=== PATIENT | female | born 1995 | race African-American/Black ===

== ENCOUNTER 2016-11-03 23:54 | Emergency (ER) | payer MEDICAID, OTHER ==
[~2016-11-03] VITALS: Ht 165.1 cm; Wt 145.0 kg
[~2016-11-03 23:54] MED LIST: AUGM875T PO
[2016-11-03 23:56] VITALS: BP 169/97; PULSE 84; RESP 16; TEMP 98.4; O2SAT 97
[2016-11-04] MEDS ORDERED: LIDOCAINE VISCOUS 2% SOLN 15 ML UDC PO ONE (00:30)
[2016-11-04] MEDS ORDERED: SODIUM CHLORIDE 0.9% FLUSH 10 ML FLUSH IVF PRN (00:30)
[2016-11-04] MEDS ORDERED: ALUMINUM/MAGNESIUM/SIMETH 30 ML CUP PO ONE (00:30)
--- NOTE | 2016-11-04 00:32 | PD ---
HPI Chief Complaint: Pain: Acute or Chronic Time Seen by Provider: 00:17 Travel History International Travel<30 days: No Contact w/Intl Traveler<30days: No Traveled to known affect area: No History of Present Illness HPI 20-year-old female here for evaluation of chest pain and left ear pain. The patient has had intermittent sharp/burning/substernal chest pains for the last week. History of gastric sleeve about 3 years ago in [facility]. No abdominal pain. Patient has been afraid to eat that she thinks it will cause pain in her chest, however she denies any modifying factors to her pain. No dyspnea. She has had a nonproductive cough. No fevers or chills. No known history of cardiac disease. No family history of cardiac disease. No history of DVT or PE. No hemoptysis. Patient is also complaining of left ear pain. She had her left tragus pierced about a month ago and reports pain and drainage. [facility] Past Medical History Respiratory: Yes (ASTHMA) ?: Not LMP: 10/07/16 Past Surgical History Tonsillectomy: Yes Social History Tobacco Use: No Allergies-Medications (Allergen,Severity, Reaction): Coded Allergies: No Known Allergies (Unverified , 11/04/16) Reported Meds & Prescriptions Reported Meds & Active Scripts Active No Active Prescriptions or Reported Medications Review of Systems Except as stated in HPI: all other systems reviewed are Neg Physical Exam Narrative GENERAL: Well-developed, well-nourished, overweight, comfortable, no acute distress. SKIN: Focused skin assessment warm/dry. No rash. HEAD: Atraumatic. Normocephalic. EYES: Pupils equal and round. No scleral icterus. No injection or drainage. ENT: Mucous membranes pink and moist. Left tragus with piercing with overlying skin over the backing of the piercing. No erythema, no warmth, no purulent drainage. CARDIOVASCULAR: Regular rate and rhythm. No murmur appreciated. RESPIRATORY: No accessory muscle use. Clear to auscultation. Breath sounds equal bilaterally. GASTROINTESTINAL: Abdomen soft, round, non-tender, nondistended. MUSCULOSKELETAL: No obvious deformities. No clubbing. No cyanosis. No edema. NEUROLOGICAL: Awake and alert. No obvious cranial nerve deficits. Motor grossly within normal limits. Normal speech. PSYCHIATRIC: Appropriate mood and affect; insight and judgment normal. Data Data Last Documented VS Vital Signs Date Time Temp Pulse Resp B/P Pulse Ox O2 Delivery O2 Flow Rate FiO2 11/04/16 00:12 18 11/03/16 23:56 98.4 84 169/97 97 Room Air Orders Electrocardiogram (11/04/16 00:23) Ckmb (Isoenzyme) Profile (11/04/16 00:23) Complete Blood Count With Diff (11/04/16 00:23) D-Dimer (11/04/16:23) Prothrombin Time / Inr (Pt) (11/04/16:23) Act Partial Throm Time (Ptt) (11/04/16 00:23) Troponin I (11/04/16:23) Chest, Single Ap (11/04/16:23) Ecg Monitoring (11/04/16 00:23) Iv Access Insert/Monitor (11/04/16 00:23) Oximetry (11/04/16:23) Oxygen Administration (11/04/16 00:23) Sodium Chloride 0.9% Flush (Ns Flush) (11/04/16 00:30) Comprehensive Metabolic Panel (11/04/16 00:23) Lipase (11/04/16 00:23) Al-Mag Hy-Si 40-40-4 Mg/Ml Liq (Mag-Al P (11/04/16 00:30) Lidocaine 2% Viscous (Xylocaine 2% Visco (11/04/16 00:30) CKMB (11/04/16 00:30) CKMB% (11/04/16 00:30) Ct Pulmonary Angiogram (11/04/16 01:35) Ct Abd/Pel W Iv Contrast(Rout) (11/04/16 ) Diatrizoate Liq ( Gastroview Liq) (11/04/16 01:39) Iohexol 350 Inj (Omnipaque 350 Inj) (11/04/16 02:15) Labs Laboratory Tests Test 11/04/16 11/04/16 00:30 00:39 White Blood Count 12.5 TH/MM3 Red Blood Count 4.19 MIL/MM3 Hemoglobin 11.0 GM/DL Hematocrit 33.3 % Mean Corpuscular Volume 79.6 FL Mean Corpuscular Hemoglobin 26.4 PG Mean Corpuscular Hemoglobin 33.2 % Concent Red Cell Distribution Width 14.9 % Platelet Count 295 TH/MM3 Mean Platelet Volume 8.6 FL Neutrophils (%) (Auto) 64.2 % Lymphocytes (%) (Auto) 25.7 % Monocytes (%) (Auto) 8.3 % Eosinophils (%) (Auto) 1.2 % Basophils (%) (Auto) 0.6 % Neutrophils # (Auto) 8.0 TH/MM3 Lymphocytes # (Auto) 3.2 TH/MM3 Monocytes # (Auto) 1.0 TH/MM3 Eosinophils # (Auto) 0.2 TH/MM3 Basophils # (Auto) 0.1 TH/MM3 CBC Comment DIFF FINAL Differential Comment Sodium Level 139 MEQ/L Potassium Level 3.8 MEQ/L Chloride Level 106 MEQ/L Carbon Dioxide Level 25.4 MEQ/L Anion Gap 8 MEQ/L Blood Urea Nitrogen 9 MG/DL Creatinine 0.66 MG/DL Estimat Glomerular Filtration 138 ML/MIN Rate Random Glucose 84 MG/DL Calcium Level 9.2 MG/DL Total Bilirubin 0.3 MG/DL Aspartate Amino Transf 15 U/L (AST/SGOT) Alanine Aminotransferase 17 U/L (ALT/SGPT) Alkaline Phosphatase 88 U/L Total Creatine Kinase 106 U/L Creatine Kinase MB LESS THAN 0.5 NG/ML Troponin I LESS THAN 0.02 NG/ML Total Protein 7.7 GM/DL Albumin 3.4 GM/DL Lipase 128 U/L Prothrombin Time 9.9 SEC Prothromb Time International 0.9 RATIO Ratio Activated Partial 28.3 SEC Thromboplast Time D-Dimer Quantitative (PE/DVT) 0.60 MG/L [facility] Medical Decision Making Medical Screen Exam Complete: Yes Emergency Medical Condition: Yes Differential Diagnosis GERD, gastritis, ACS unlikely, PE unlikely, musculoskeletal pain, acute intra- abdominal process unlikely Narrative Course Vital signs reviewed. CBC shows WBC 12.5, hemoglobin 11, hematocrit 33.3, platelets 295. CMP is unremarkable. Cardiac enzymes are negative. Lipase is 128. D-dimer slightly elevated at 0.60. Chest x-ray shows no acute cardiopulmonary disease. CT abdomen pelvis read as essentially unremarkable study. CT pulmonary angiogram: CONCLUSION: Probable residual thymus tissue in the anterior mediastinum, otherwise unremarkable. Discussed findings with reading radiologist and he recommends repeat noncontrast CT thorax in 6 months. Patient was made aware of all findings and provided a copy of her CT pulmonary angiogram report. My nurse Marcela was able to remove the patient's left tragus earing. Patient is feeling much better after receiving a GI cocktail. She is resting comfortably. Her abdominal exam is completely benign. At this point I believe she is stable for discharge home with outpatient follow-up with a primary care physician and her surgeon this week. I will also give her the name of our local bariatric surgeon whom she can follow-up with. She was informed on when to return to the emergency department. She verbalizes understanding and agreement with plan. Diagnosis Primary Impression: Atypical chest pain Referrals: Vignesh Smith MD Bariatric surgeon Primary Care Physician 3 days Additional Instructions: Follow-up with a primary care physician this week. Follow-up with your bariatric surgeon this week. Follow-up with bariatric surgeon Dr. Smith if you are unable to follow-up with your bariatric surgeon this week. Have CT thorax repeated in 6 months. Return to the emergency room for worsening symptoms or any other concerns. Scripts No Active Prescriptions or Reported Meds Disposition: 01 DISCHARGE HOME Condition: Stable Tru Suarez MD Nov 04, 2016 00:32
[2016-11-04 00:51] LABS: BASOPHIL # 0.1 TH/MM3 (0-0.2); BASOPHIL % 0.6 % (0.0-2.0); EOSINOPHIL # 0.2 TH/MM3 (0-0.4); EOSINOPHIL % 1.2 % (0.0-4.0); HEMATOCRIT 33.3 % (35.0-46.0); HEMO FLAGS DIFF FINAL; LYMPH % 25.7 % (9.0-44.0); LYMPHOCYTE # 3.2 TH/MM3 (1.0-4.8); MEAN CELL VOLUME 79.6 FL (80.0-100.0); MEAN CORPUSCULAR HEMOGLOBIN 26.4 PG (27.0-34.0); MEAN CORPUSCULAR HGB CONC 33.2 % (32.0-36.0); MONO % 8.3 % (0.0-8.0); NEUT % 64.2 % (16.0-70.0); PLATELET COUNT 295 TH/MM3 (150-450); RED BLOOD COUNT 4.19 MIL/MM3 (4.00-5.30); RED CELL DISTRIBUTION WIDTH 14.9 % (11.6-17.2); WHITE BLOOD COUNT 12.5 TH/MM3 (4.0-11.0)
--- NOTE | 2016-11-04 00:52 | RADRPT ---
EXAM DATE/TIME: 11/04/2016 00:22 [facility] COMPARISON: No previous studies available for comparison. INDICATIONS : Chest pain. MEDICAL HISTORY : None. SURGICAL HISTORY : None. ENCOUNTER: Initial ACUITY: 1 day PAIN SCORE: 3/10 LOCATION: chest substernal. FINDINGS: The lungs are clear without infiltrate, nodule, or mass. There is no appreciable pleural effusion fo r technique. Heart and mediastinum are unremarkable. CONCLUSION: No acute cardiopulmonary disease. Jai Horn MD on November 04, 2016 at 0:51 Board Certified Radiologist. This report was verified electronically.
[2016-11-04 01:24] LABS: APTT (PATIENT) 28.3 SEC (24.3-30.1); INTERNATIONAL NORMALIZED RATIO 0.9 RATIO; PROTHROMBIN TIME - PATIENT 9.9 SEC (9.8-11.6)
[2016-11-04 01:27] LABS: ALT (GPT) 17 U/L (9-42); ANION GAP 8 MEQ/L (5-15); AST (GOT) 15 U/L (16-38); BICARBONATE 25.4 MEQ/L (21.0-32.0); BLOOD UREA NITROGEN 9 MG/DL (7-18); CHLORIDE 106 MEQ/L (98-107); GLOMERULAR FILTRATION RATE 138 ML/MIN (>89); POTASSIUM 3.8 MEQ/L (3.5-5.1); SODIUM (NA) 139 MEQ/L (136-145)
[2016-11-04 01:32] LABS: ALKALINE PHOSPHATASE 88 U/L (45-117); CREATINE KINASE 106 U/L (26-192); TOTAL BILIRUBIN ADULT 0.3 MG/DL (0.2-1.0)
[2016-11-04] MEDS ORDERED: DIATRIZOATE MEGLUM/DIATRIZOATE SOD 9 ML CUP ONE (01:39)
[2016-11-04 01:45] LABS: CKMB LESS THAN 0.5 NG/ML (0.5-3.6)
[2016-11-04] MEDS ORDERED: IOHEXOL 350 MG/ML 10 ML VIAL (for RAD DIAG) IV ONE (02:15)
--- NOTE | 2016-11-04 02:34 | RADRPT ---
EXAM DATE/TIME: 11/04/2016 02:08 [facility] COMPARISON: No previous studies available for comparison. INDICATIONS : Medial chest pain; rule out pulmonary embolus. IV CONTRAST: 100 cc Omnipaque 350 (iohexol) IV ; Cumulative dose for multiple exams. RADIATION DOSE: 16.62 CTDIvol (mGy) ; Combined studies - Thorax/Abdomen/Pelvis MEDICAL HISTORY : Asthma SURGICAL HISTORY : Tonsillectomy. Gastric sleeve ENCOUNTER: Initial ACUITY: 1 day PAIN SCALE: 5/10 LOCATION: chest TECHNIQUE: Volumetric scanning of the chest was performed using a pulmonary embolism protocol MIP images were re constructed. Using automated exposure control and adjustment of the mA and/or kV according to patien t size, radiation dose was kept as low as reasonably achievable to obtain optimal diagnostic quality images. FINDINGS: There is no evidence for PE for technique. Lungs are clear. There is approximate 2.3 cm soft tis jannie density anterior mediastinum possibly residual thymus. CONCLUSION: Probable residual thymus tissue in the anterior mediastinum, otherwise unremarkable. Jai Horn MD on November 04, 2016 at 2:28 Board Certified Radiologist. This report was verified electronically.
--- NOTE | 2016-11-04 02:36 | RADRPT ---
EXAM DATE/TIME: 11/04/2016 02:11 [facility] COMPARISON: No previous studies available for comparison. INDICATIONS : Abdominal pain. IV CONTRAST: 100 cc Omnipaque 350 (iohexol) IV ; Cumulative dose for multiple exams. ORAL CONTRAST: No oral contrast ingested. RADIATION DOSE: 16.62 CTDIvol (mGy) ; Combined studies - Thorax/Abdomen/Pelvis MEDICAL HISTORY : Asthma SURGICAL HISTORY : Tonsillectomy. Gastric sleeve ENCOUNTER: Initial ACUITY: 1 day PAIN SCALE: 5/10 LOCATION: medial abdomen TECHNIQUE: Volumetric scanning of the abdomen and pelvis was performed. Using automated exposure control and ad justment of the mA and/or kV according to patient size, radiation dose was kept as low as reasonably achievable to obtain optimal diagnostic quality images. FINDINGS: CT Abdomen: The liver, spleen, pancreas, kidneys, adrenals are unremarkable. There is no evidence for any appreciable pathological adenopathy, free fluid, or bowel obstruction. There are postsurgical c hanges in the upper abdomen from prior gastric surgery. CT pelvis: There is no evidence for mass, abscess formation, or any significant adenopathy within the pelvis. CONCLUSION: Essentially unremarkable study. Jai Horn MD on November 04, 2016 at 2:32 Board Certified Radiologist. This report was verified electronically.
--- NOTE | 2016-11-04 14:53 | EKG ---
Date Performed: 11/04/2016 Time Performed: 00:48:00 PTAGE: 20 years EKG: Sinus rhythm NORMAL ECG NO PREVIOUS TRACING DOCTOR: Durga Davenport Interpretating Date/Time 11/04/2016 14:51:51
== END 2016-11-04 03:53 | disposition home or self-care (01) ==
LOC: NEPE 23:54
DX: R07.89 Other chest pain (principal); H92.02 Otalgia, left ear; J45.909 Unspecified asthma, uncomplicated
CPT/HCPCS: 71010; 71275; 74177; 80053; 82550; 82552; 83690; 84484; 85025; 85379; 85610; 85730; 93005; 99285; Q9963; Q9967